=== PATIENT | male | born 1980 | race Caucasian/White ===

== ENCOUNTER → 2018-06-18 | Outpatient (CLI) | payer OTHER ==
[~2018-06-18] MED LIST: FLOMAX0.4 MG PO; LAMICTAL100 MG PO; NORCO 5-325 TA1 EACH PO; SERTRALINE HCL50 MG PO
== END | disposition home or self-care (01) ==
LOC: LITH 10:37
DX: N20.0 Calculus of kidney (principal); Z98.890 Other specified postprocedural states; Z90.89 Acquired absence of other organs